=== PATIENT | female | born 1990 | race Caucasian/White ===

== ENCOUNTER 2019-04-20 09:00 | Inpatient (IN) | payer MEDICAID ==
[~2019-04-20] VITALS: Ht 147.3 cm; Wt 76.0 kg
[2019-04-20 11:32] VITALS: Ht 147.3 cm; Wt 76.0 kg
[2019-04-20] MEDS ORDERED: LACTATED RINGER'S 1,000 ML IV PRN (11:32)
[2019-04-20] MEDS ORDERED: LIDOCAINE 1% (MPF) 30 ML INJ INJ PRN (12:00)
[2019-04-20] MEDS ORDERED: CARBOPROST 250 MCG INJ IM PRN (12:00)
[2019-04-20] MEDS ORDERED: METHYLERGONOVINE 0.2 MG INJ IM PRN (12:00)
[2019-04-20] MEDS ORDERED: AMPICILLIN 2 GM/NS (PMX) 100 ML IV ONE (12:00)
[2019-04-20] MEDS ORDERED: MISOPROSTOL 200 MCG TAB PR PRN (12:00)
[2019-04-20] MEDS ORDERED: OXYTOCIN 30 UNITS/LR 500 ML IV SCH ×2 (12:00)
[2019-04-20] MEDS ORDERED: IBUPROFEN 600 MG TAB PO PRN (12:00)
[2019-04-20] MEDS ORDERED: OXYTOCIN 30 UNITS/LR 500 ML IV PRN (12:00)
[2019-04-20] MEDS ORDERED: BUTORPHANOL 2 MG INJ IV PRN ×2 (12:00)
[2019-04-20] MEDS: LACTATED RINGER'S 1,000 ML IV SCH ×2 (13:26→19:37)
[2019-04-20] MEDS: MISOPROSTOL 50 MCG CAPSULE PO SCH ×2 (13:26→17:33)
[2019-04-20] MEDS: AMPICILLIN 1 GM/NS (PMX) 50 ML IV SCH ×2 (17:33→21:30)
--- NOTE | 2019-04-20 17:38 | HP ---
Date/Time of Note Date/Time of Note DATE: 04/20/19 TIME: 17:35 OB - History Hx of Present Free Text/Dictation 28-year-old female 3 para 2 at 39+ weeks gestation admitted for elective induction of labor Last Menstrual Period: Aug 01, 2018 Estimated Due Date: Apr 26, 2019 : 3 Para: 2 Care: Good Care Ultrasounds: Normal mid trimester US Obstetrical Complications: None Medical Complications: None Past Family/Social History * Past Medical, Surgical, Family and Obstetric Histories reviewed from chart. Blood Type: O+ Rubella: immune RPR/VDRL: Negative GBS Status: Negative HBsAG: Negative OB Admission Exam Physical Exam HEENT: WNL Heart: Rhythm Normal Lungs: Clear, Equal Abdomen: WNL Extremities: Normal Reflexes: Normal Cervical Dilatation: None Effacement: 0% Station: -3 Membranes: Intact Heart Rate: 140's Accelerations: Accelerations Present Decelerations: No Decelerations Varibility: Marked Contractions on Admission: None Last 72 hours Lab Results CBC & BMP 04/20/19 11:50 OB Assessment/Plan Reason for admission: induction of labor Other Assessment: Term gestation For elective induction of labor Other plan: Started on Cytotec EDGARDO LOMELI MD Apr 20, 2019 17:38
[2019-04-21] MEDS: MISOPROSTOL 50 MCG CAPSULE PO SCH ×4 (00:20→13:20)
[2019-04-21] MEDS: AMPICILLIN 1 GM/NS (PMX) 50 ML IV SCH ×6 (01:23→21:27)
[2019-04-21] MEDS: LACTATED RINGER'S 1,000 ML IV SCH ×4 (04:32→17:18)
[2019-04-21] MEDS ORDERED: FENTAnyl 2MCG/ML-ROPIV 0.2% 100 ML ONE (07:38)
--- NOTE | 2019-04-21 07:47 | PREAC ---
Date/Time of Note Date/Time of Note DATE: 04/21/19 TIME: 07:45 Anesthesia Eval and Record Evaluation Time Pre-Procedure Interview DATE: 04/21/19 TIME: 07:45 Age 28 Sex female NPO: 8 hrs Preoperative diagnosis Labor Pain Planned procedure Labor Epidural Past Medical History Past Medical History: Includes : : (3), Para: (2), Gestational age: (39) Surgery & Anesthesia Issues No known issue Meds Anticoagulation: No Beta Roxi within 24 hr: No Reason Beta Roxi not given: Pt. not on B-Roxi No Active Prescriptions or Reported Meds Current Medications Lactated Ringer's 1,000 ml @ 125 mls/hr Q8H IV Last administered on 04/21/19at 04:32; Admin Dose 125 MLS/HR; Start 04/20/19 at 11:32 Butorphanol Tartrate (Stadol) 1 mg Q2H PRN IV .PAIN SCALE 1-5; Start 04/20/19 at 12:00 Butorphanol Tartrate (Stadol) 2 mg Q2H PRN IV .PAIN SCALE 6-10; Start 04/20/19 at 12:00 Lidocaine (Xylocaine 1% (Mpf)) 30 ml ONCE PRN INJ .EPISIOTOMY; Start 04/20/19 at 12:00 Oxytocin/Lactated Ringer's 500 ml @ 500 mls/hr ONCE POST IV ; Start 04/20/19 at 12:00 Oxytocin/Lactated Ringer's 500 ml @ 125 mls/hr POST IV ; Start 04/20/19 at 12:00 Ibuprofen (Motrin) 600 mg ONCE PRN PO .PAIN 1-5; Start 04/20/19 at 12:00 Lactated Ringer's 1,000 ml @ 2,000 mls/hr Q30M PRN IV .ANESTHESIA; Start 04/20/19 at 11:32 Oxytocin/Lactated Ringer's 500 ml @ 0 mls/hr ONCE PRN IV .VAGINAL BLEEDING; Start 04/20/19 at 12:00 Methylergonovine Maleate (Methergine) 0.2 mg ONCE PRN IM .VAGINAL BLEEDING; Start 04/20/19 at 12:00 Carboprost Tromethamine (Hemabate) 250 mcg ONCE PRN IM .VAGINAL BLEEDING; Start 04/20/19 at 12:00 Misoprostol (Cytotec) 1,000 mcg ONCE PRN [place] .VAGINAL BLEEDING; Start 04/20/19 at 12:00 Ampicillin 50 ml @ 100 mls/hr Q4H IV Last administered on 04/21/19at 05:34; Admin Dose 100 MLS/HR; Start 04/20/19 at 16:00 Misoprostol (Cytotec 50 Mcg Capsule) 50 mcg Q4 PO Last administered on 04/21/19at 04:32; Admin Dose 50 MCG; Start 04/20/19 at 13:00 Meds reviewed: Yes Allergies Coded Allergies: No Known Allergies (Verified Allergy, Mild, 05/26/10) No Known Drug Allergy (Verified Allergy, Mild, 03/29/08) Allergies Reviewed: Yes Labs/Studies Labs Reviewed: Reviewed by anesthesiologist Result Diagram: 04/20/19 1150 Laboratory Tests 04/20/19 11:50 Blood Bank Test 04/20/19 11:50 Antibody Screen NEGATIVE Blood Type O POSITIVE Rh Immune Globulin Candidate NO test: Positive Studies: ECG (n/a), CXR (n/a) Pre-procedure Exam Airway: Adequate mouth opening, Adequate thyromental dist Mallampati: Mallampati II Teeth: Normal Lung: Normal Heart: Normal ASA Physical Status ASA physical status: 2 Emergency: None Planned Anesthetic Neuraxial: Epidural Planned Pain Management Epidural Pre-operative Attestations Prior to commencing anesthesia and surgery, the patient was re-evaluated, there was verification of: *The patient's identity *The results of appropriate recent lab work and preoperative vital signs *The above evaluation not changing prior to induction *Anesthetic plan, risk benefits, alternative and complications discussed with patient/family; questions answered; patient/family understands, accepts and wishes to proceed. FREDIS DOTY MD Apr 21, 2019 07:47
[2019-04-21] MEDS ORDERED: NALOXONE (0.4 MG/ML) INJ IV PRN (08:00)
[2019-04-21] MEDS ORDERED: MINERAL OIL LIGHT 10 ML VIAL ONE (08:14)
--- NOTE | 2019-04-21 08:17 | PAC ---
Date/Time of Note Date/Time of Note DATE: 04/21/19 TIME: 08:15 Post-Anesthesia Notes Post-Anesthesia Note Last documented vital signs T: 98.0 Activity: WNL Respiratory function: WNL Cardiovascular function: WNL Mental status: Baseline Pain reasonably controlled: Yes Hydration appropriate: Yes Nausea/Vomiting absent: Yes FREDIS DOTY MD Apr 21, 2019 08:17
[2019-04-21] MEDS: FENTAnyl 2MCG/ML-ROPIV 0.2% 100 ML BAG EPI SCH (16:33)
[2019-04-21] MEDS ORDERED: OXYTOCIN 30 UNITS/LR 500 ML IV SCH (19:00)
[2019-04-22] MEDS ORDERED: ACETAMINOPHEN 325 MG TAB PO ONE
[2019-04-22] MEDS: LACTATED RINGER'S 1,000 ML IV SCH ×2 (01:41→08:37)
[2019-04-22] MEDS: AMPICILLIN 1 GM/NS (PMX) 50 ML IV SCH ×2 (01:45→05:43)
[2019-04-22] MEDS: FENTAnyl 2MCG/ML-ROPIV 0.2% 100 ML BAG EPI SCH (01:55)
--- NOTE | 2019-04-22 10:33 | LDN ---
Date/Time of Note Date/Time of Note DATE: 04/22/19 TIME: 10:30 Delivery Summary of normal male Weeks of Gestation 39w4d Placenta Delivered: Spontaneously, Intact & Complete Meconium: none Episiotomy: No Perineal laceration: 1 Laceration repair: 000 ch gut Anesthesia type: Epidural Estimated blood loss: 100 Sponge & Needle done & correct: Yes All needle counts correct: Yes Any foreign bodies felt in the: No Delivery Information Sex Sex: male Apgars 1 Minute: 9 5 Minute: 9 Suctioning Nose & mouth suctioned at steffanie: Yes Delee suction performed: Yes Umbilical Cord Umbilical cord with: 3 Vessels Cord presentations: no nuchal cord Cord Blood was obtained: Yes Mother & Baby Disposition Disposition Mom & Baby to Maternity; Good: Yes Mom transferred to: Other Baby to NICU: No () SHELBIE LOPEZ MD Apr 22, 2019 10:33
[2019-04-22 12:22] VITALS: BP 112/62; PULSE 68; RESP 18
[2019-04-22] MEDS ORDERED: WITCH HAZEL/GLYCERIN PAD PR PRN (13:00)
[2019-04-22] MEDS ORDERED: OXYCODONE/ASPIRIN (4.88/325) TAB PO PRN ×2 (13:00)
[2019-04-22] MEDS ORDERED: ZOLPIDEM 5 MG TAB PO PRN (13:00)
[2019-04-22] MEDS ORDERED: OXYTOCIN 30 UNITS/LR 500 ML IV PRN (13:00)
[2019-04-22] MEDS ORDERED: METHYLERGONOVINE 0.2 MG INJ IM PRN (13:00)
[2019-04-22] MEDS ORDERED: BENZOCAINE 20% 56 ML SPRAY TOP PRN (13:00)
[2019-04-22] MEDS ORDERED: LANOLIN HPA 1 PKT TOP PRN (13:00)
[2019-04-22] MEDS ORDERED: MISOPROSTOL 200 MCG TAB PR PRN (13:00)
[2019-04-22] MEDS ORDERED: CARBOPROST 250 MCG INJ IM PRN (13:00)
[2019-04-22] MEDS: IBUPROFEN 600 MG TAB PO SCH ×2 (13:37→17:29)
[2019-04-22 16:29] VITALS: BP 106/59; PULSE 77; RESP 16
[2019-04-22 20:07] VITALS: BP 106/64; PULSE 71; RESP 19
[2019-04-22] MEDS: SENNA/DOCUSATE NA (8.6MG/50MG) TAB PO SCH (21:00)
[2019-04-23 00:30] VITALS: BP 106/60; PULSE 80; RESP 21
[2019-04-23 04:45] VITALS: BP 107/64; PULSE 82; RESP 16
[2019-04-23] MEDS: IBUPROFEN 600 MG TAB PO SCH ×5 (06:00→23:54)
[2019-04-23 08:00] VITALS: BP 101/56; PULSE 80; RESP 18
[2019-04-23] MEDS: SENNA/DOCUSATE NA (8.6MG/50MG) TAB PO SCH ×2 (10:11→23:54)
[2019-04-23 16:00] VITALS: BP 100/65; PULSE 71; RESP 16
[2019-04-23 20:00] VITALS: BP 108/70; PULSE 70; RESP 18
--- NOTE | 2019-04-23 22:48 | QN ---
Documentation Comment no b.m passing flarus ambulating well vss afebrile abdomen soft wound dry calf neg for tenderness lochia min A stable s/p pc/s#2 P discharge home in am SHELBIE LOPEZ MD Apr 23, 2019 22:48
[2019-04-24 04:33] VITALS: BP 108/70; PULSE 66; RESP 20
[2019-04-24] MEDS: IBUPROFEN 600 MG TAB PO SCH ×2 (06:00→12:00)
--- NOTE | 2019-04-24 06:57 | DS ---
Date/Time of Note Date/Time of Note DATE: 04/24/19 TIME: 06:54 Obstetrical Discharge Record Final Diagnosis Final Diagnosis: Term delivered Vaginal Delivery Obstetrical Delivery: Spontaneous, Laceration, Repaired Complications Induction: Yes Rupture of Membranes: No Condition on Discharge Physical Assessment Last Vitals: VSS afebrile Voiding: Yes Bowel Movement: Yes Breast: Soft, non-tender Fundus: Firm Abdomen and Incision: n/a Episiotomy: n/a Calf Tenderness: No Patient Condition: Stable SHELBIE LOPEZ MD Apr 24, 2019 06:57
--- NOTE | 2019-04-24 07:00 | PD.PPDC ---
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
[2019-04-24 08:00] VITALS: BP 111/74; PULSE 79; RESP 18
[2019-04-24] MEDS ORDERED: DIPHTH/TET/ACEL PERTUSS (ADULT) 0.5 ML VIAL IM* ONE (09:00)
[2019-04-24] MEDS: SENNA/DOCUSATE NA (8.6MG/50MG) TAB PO SCH (09:00)
--- NOTE | 2019-04-25 15:42 | DELSUM ---
Delivery Summary A-C Datetime Report Generated by CPN: 04/25/2019 15:42 DELIVERY PERSONNEL Operations And Maintenance Supervisor: Sawyer Hernandeza MATERNAL INFORMATION Delivery Anesthesia: Epidural Medications in Delivery: 30UNITS PITOCIN Delivery QBL (ml): 89 Placenta Cultured: No LABOR SUMMARY EDC: 04/26/2019 00:00 No. Babies in Womb: 1 Attempted: No Labor Anesthesia: Epidural LABOR INFORMATION Reason for Induction: Other Onset of Labor: 04/22/2019 07:00 Complete Dilatation: 04/22/2019 09:27 Cervical Ripening Agents: Cytotec @ 50 Group B Beta Strep: Done, Result Unknown Antibiotics # of Doses: 14 Antibiotics Time of Last Dose: 04/22/2019 05:43 Steroids Given: None Reason Steroids Not Administered: Not Applicable MEMBRANES Membranes Rupture Method: Artificial Rupture of Membranes: 04/22/2019 08:32 Length of Rupture (hr): 1.63 Amniotic Fluid Color: Clear Amniotic Fluid Amount: Small Amniotic Fluid Odor: None STAGES OF LABOR Stage 1 hr: 2 Stage 1 min: 27 Stage 2 hr: 0 Stage 2 min: 43 Stage 3 hr: 0 Stage 3 min: 3 Total Time in Labor hr: 3 Total Time in Labor min: 13 VAGINAL DELIVERY Episiotomy: None Laceration Extension: First Degree Laceration Repair: Yes Initial Vag Sponge Count: 10 Final Vag Sponge Count: 10 Initial Vag Sharps Count: 1+1 Final Vag Sharps Count: 2 Sponge Count Correct: Yes; Vaginal Sweep Performed Sharps Count Correct: Yes BABY A INFORMATION Infant Delivery Date/Time: 04/22/2019 10:10 Method of Delivery: Vaginal Born in Route : No : N/A Forceps: N/A Vacuum Extraction: N/A Shoulder Dystocia : N/A SHOULDER DYSTOCIA BABY A Delivery Date/Time: 04/22/2019 10:10 PRESENTATION/POSITION BABY A Presentation: Cephalic Cephalic Presentation: Vertex Breech Presentation: N/A PLACENTA INFORMATION BABY A Placenta Delivery Time : 04/22/2019 10:13 Placenta Method of Delivery: Spontaneous Placenta Status: Delivered SCORES BABY A Heart Rate 1 min: >100 bpm Resp Effort 1 min: Good Cry Reflex Irritability 1 min: Cough/Sneeze/Pulls Away Muscle Tone 1 min: Active Motion Color 1 min: Body [place], Extremit Blue Resuscitation Effort 1 min: Tactile Stimulation SCORE 1 MIN: 9 Heart Rate 5 min: >100 bpm Resp Effort 5 min: Good Cry Reflex Irritability 5 min: Cough/Sneeze/Pulls Away Muscle Tone 5 min: Active Motion Color 5 min: Body [place], Extremit Blue Resuscitation Effort 5 min: Tactile Stimulation SCORE 5 MIN: 9 INFANT INFORMATION BABY A Gestational Age at Delivery: 39.3 Gestational Status: Full Term- 39- 40.6 Weeks Infant Outcome : Liveborn, with signs of life Infant Condition : Stable Sex: Male IDENTIFICATION/MEDS BABY A ID Band Number: [id number] ID Band Location: Right Leg; Left Arm Sensor Applied: Yes Sensor Number: [id number] Sensor Location : Cord Clamp Vitamin K Given : Not Given Erythromycin Given: Not Given WEIGHT/LENGTH BABY A Birthweight (gm): 3355 Infant Weight (lb): 7 Infant Weight (oz): 6 Infant Length (in): 20.00 Length (cm): 50.80 CORD INFORMATION BABY A No. Cord Vessels: 3 Nuchal Cord : N/A Cord Blood Taken: Yes Suction: Mouth; Nose ASSESSMENT BABY A Infant Complications: Multiple Variable Decels Physical Findings at Delivery: Within Normal Limits Respirations: Appears Normal Fruit Loader/ALS Called : No Care By: Aleksandr Cuellar Transferred To: Remains with Mother
== END 2019-04-24 15:41 | disposition home or self-care (01) | DRG 807 ==
LOC: L-D 09:15 → PP1 04-22 12:13
PROVIDERS: ADMIT Obstetrics & Gynecology; ATTEND Obstetrics & Gynecology
PROC: 3E033VJ Introduction of Other Hormone into Peripheral Vein, Percutaneous Approach (ICD-10-PCS; 2019-04-21)
PROC: 10E0XZZ Delivery of Products of Conception, External Approach (ICD-10-PCS; principal; 2019-04-22)
PROC: 0HQ9XZZ Repair Perineum Skin, External Approach (ICD-10-PCS; 2019-04-22)
DX: O70.0 First degree perineal laceration during delivery (principal); Z37.0 Single live birth; Z3A.39 39 weeks gestation of pregnancy
CPT/HCPCS: 62322; 76815; 85025; 85610; 85730; 86592; 86850; 86900; 86901; 87340; 99464; J0290; J2590; J3010; J7120